=== PATIENT | male | born 1990 | race Caucasian/White ===

== ENCOUNTER 2017-03-15 17:20 | Emergency (ER) | payer BC, MEDICARE ==
[2017-03-15 17:48] LABS: BASO # 0.1 10_X3_uL (0.0-0.1); BASO % 1.1 % (0.2-1.2); EOS # 0.3 10_X3_uL (0.0-0.5); EOS % 2.8 % (0.8-7.0); GRAN % 54.6 % (34.0-67.9); HEMATOCRIT 46.9 % (40-51); HEMOGLOBIN 16.9 g/dL (13.7-17.5); LYMPH # 3.1 10_X3_uL (1.3-3.6); LYMPH % 33.4 % (21.8-53.1); MEAN CORPUSCULAR HEMOGLOBIN 29.2 pg (27.0-33.0); MONO # 0.8 10_X3_uL (0.3-0.8); MONO % 8.1 % (5.3-12.2); PLATELET COUNT 269 x10_3/uL (163-337); RED BLOOD COUNT 5.79 x10_6/uL (4.6-6.1); RED CELL DISTRIBUTION WIDTH 12.5 % (11.6-14.4); WHITE BLOOD COUNT 9.2 x10_3/uL (4.2-9.1)
[2017-03-15 18:07] LABS: BLOOD UREA NITROGEN 13 mg/dL (7-18); CALCIUM 8.7 mg/dL (8.7-10.7); CARBON DIOXIDE 24 mmol/L (21-32); CREATINE KINASE 125 U/L (35-232); CREATININE 0.7 mg/dL (0.6-1.3); GLUCOSE,RANDOM 229 mg/dL (70-99); POTASSIUM 3.7 mmol/L (3.5-5.1); SODIUM 138 mmol/L (136-145)
== END 2017-03-15 21:22 | disposition home or self-care (01) ==
LOC: ER 17:20
PROVIDERS: Internal Medicine
DX: J20.8 Acute bronchitis due to other specified organisms (principal); E11.9 Type 2 diabetes mellitus without complications; F41.9 Anxiety disorder, unspecified; I10 Essential (primary) hypertension; R05 Cough; R07.9 Chest pain, unspecified; Z79.899 Other long term (current) drug therapy; Z88.5 Allergy status to narcotic agent
CPT/HCPCS: 36415; 71020; 71260; 80048; 82550; 82553; 83036; 85025; 85379; 93005; 99070; 99284-25; J7040; Q9967